=== PATIENT | female | born 1975 | race Asian ===

== ENCOUNTER → 2021-10-13 | Outpatient (CLI) | payer SELFPAY | LOC: COL.LAB 13:48 | DX: R76.12 Nonspecific reaction to cell mediated immunity measurement of gamma interferon antigen response without active tuberculosis (principal) ==

== ENCOUNTER → 2022-04-26 | Outpatient (CLI) | payer MEDICAID | LOC: COL.RAD 12:32 | DX: R10.2 Pelvic and perineal pain (principal) ==